=== PATIENT | female | born 1990 | race Caucasian/White ===

== ENCOUNTER → 2024-06-13 07:30 | Outpatient (REF) | payer OTHER, SELFPAY | LOC: RAD 07:30 | PROVIDERS: ATTENDING PHYSICIAN Internal Medicine Gastroenterology; FAMILY PHYSICIAN Student in an Organized Health Care Education/Training Program | DX: R10.13 Epigastric pain (principal) | CPT/HCPCS: 76700 ==

== ENCOUNTER → 2024-07-27 07:44 | Outpatient (REF) | payer OTHER, SELFPAY | LOC: RAD 07:44 | PROVIDERS: ATTENDING PHYSICIAN Internal Medicine Gastroenterology; FAMILY PHYSICIAN Family Medicine | DX: R10.13 Epigastric pain (principal) | CPT/HCPCS: 78227; A9537; J2805 ==

== ENCOUNTER → 2024-08-10 08:55 | Outpatient (REF) | payer OTHER, SELFPAY | LOC: RAD 08:55 | PROVIDERS: FAMILY PHYSICIAN Family Medicine; OTHER PHYSICIAN Internal Medicine Gastroenterology | DX: R10.13 Epigastric pain (principal) | CPT/HCPCS: 74221 ==

== ENCOUNTER → 2024-08-31 09:17 | Outpatient (REF) | payer OTHER, SELFPAY | LOC: WDC 09:17 | PROVIDERS: ATTENDING PHYSICIAN Nurse Practitioner Family | DX: N64.4 Mastodynia (principal); Z71.0 Person encountering health services to consult on behalf of another person | CPT/HCPCS: 76642; 77062; 77066 ==

== ENCOUNTER → 2025-01-07 08:57 | Outpatient (REF) | payer OTHER, SELFPAY | LOC: RAD 08:57 | PROVIDERS: ATTENDING PHYSICIAN Internal Medicine Gastroenterology; FAMILY PHYSICIAN Nurse Practitioner Family | DX: R10.13 Epigastric pain (principal) | CPT/HCPCS: 74250 ==